=== PATIENT | male | born 1960 | race African-American/Black ===

== ENCOUNTER 2019-03-21 08:51 | Day surgery (SDC) | payer MEDICAID ==
[~2019-03-21] VITALS: Ht 175.3 cm; Wt 85.4 kg
[~2019-03-21 08:51] MED LIST: ACET-2247 PO; ACET-784 PO; ASPI-556 PO; ATOR20TA86 PO; FAMO20 PO; GABA-531 PO; HYDR25TA PO; SODIUM CHLORIDE 0.9% 1,000 ML IV ONE
[2019-03-21] MEDS: SODIUM CHLORIDE 0.9% 1,000 ML IV ONE (09:45)
[2019-03-21] MEDS ORDERED: LIDOCAINE/PF 2% 5 ML VIAL INJ ONE (12:00)
[2019-03-21] MEDS ORDERED: PROPOFOL 1% 20 ML VIAL IVP ONE (12:00)
== END 2019-03-21 11:40 | disposition home or self-care (01) ==
LOC: SURGERY 08:51
PROVIDERS: ATTEND Internal Medicine Gastroenterology
DX: K29.50 Unspecified chronic gastritis without bleeding (principal); I10 Essential (primary) hypertension; G89.29 Other chronic pain; K21.9 Gastro-esophageal reflux disease without esophagitis; F17.210 Nicotine dependence, cigarettes, uncomplicated; E78.5 Hyperlipidemia, unspecified; Z79.82 Long term (current) use of aspirin; Z79.899 Other long term (current) drug therapy; Z72.89 Other problems related to lifestyle
CPT/HCPCS: 43239; 88305; 88312; 88313; C1769; J2704; J3490; J7030

== ENCOUNTER → 2019-04-03 | Day surgery (SDC) | payer MEDICAID ==
[~2019-04-03] VITALS: Ht 175.3 cm; Wt 85.4 kg
[~2019-04-03] MED LIST changes: +FentaNYL CITRATE-PF 100 MCG/2 ML VIAL ONE; +MIDAZOLAM HCL 5 MG/ML VIAL ONE
[2019-04-03] MEDS: SODIUM CHLORIDE 0.9% 1,000 ML IV ONE (12:22)
== END | disposition home or self-care (01) ==
LOC: SURGERY 11:48
PROVIDERS: ATTEND Internal Medicine Gastroenterology
DX: Z12.11 Encounter for screening for malignant neoplasm of colon (principal); K64.8 Other hemorrhoids; I10 Essential (primary) hypertension; K21.9 Gastro-esophageal reflux disease without esophagitis; E78.5 Hyperlipidemia, unspecified; G89.29 Other chronic pain; F17.210 Nicotine dependence, cigarettes, uncomplicated; Z79.899 Other long term (current) drug therapy; Z79.82 Long term (current) use of aspirin; Z98.890 Other specified postprocedural states; Z83.3 Family history of diabetes mellitus
CPT/HCPCS: 45378; J2250; J3010; J7030